=== PATIENT | male | born 1950 | race Caucasian/White ===

== ENCOUNTER 2021-03-31 06:35 | Emergency (ER) | payer MEDICARE, OTHER ==
[~2021-03-31] VITALS: Ht 180.3 cm; Wt 90.7 kg
[2021-03-31 06:35] VITALS: BP 135/59
[2021-03-31] MEDS ORDERED: KETOROLAC 30 MG/ML VIAL IM ONE (06:55)
[2021-03-31] MEDS ORDERED: HYDROcodone/APAP 5/325 MG 1 TAB TAB PO ONE (06:55)
[2021-03-31] MEDS ORDERED: ACET-10509 PO (07:49)
[2021-03-31 08:19] VITALS: BP 135/59
[2021-03-31] MEDS ORDERED: ACET-8386 PO (08:42)
== END 2021-03-31 08:19 | disposition home or self-care (01) ==
LOC: MED 06:35
DX: M54.41 Lumbago with sciatica, right side (principal); M54.42 Lumbago with sciatica, left side; Z79.899 Other long term (current) drug therapy; Z98.890 Other specified postprocedural states; Z85.830 Personal history of malignant neoplasm of bone
CPT/HCPCS: 73502; 96372; 99283; J1885